=== PATIENT | male | born 1970 | race African-American/Black ===

== ENCOUNTER 2016-03-12 14:22 | Emergency (ER) | payer OTHER ==
[~2016-03-12] VITALS: Ht 177.8 cm; Wt 86.4 kg
[2016-03-12] MEDS ORDERED: SKELAXIN800 MG PO (19:08)
[2016-03-12] MEDS ORDERED: NAPROXEN500 MG PO (19:08)
[2016-03-12 19:26] VITALS: BP 118/89
== END 2016-03-12 19:27 | disposition home or self-care (01) ==
LOC: EME 14:22
DX: S39.012A Strain of muscle, fascia and tendon of lower back, initial encounter (principal); V73.6XXA Passenger on bus injured in collision with car, pick-up truck or van in traffic accident, initial encounter
CPT/HCPCS: 99281; 99283

== ENCOUNTER 2016-03-16 15:00 | Emergency (ER) | payer SELFPAY ==
[~2016-03-16] VITALS: Ht 177.8 cm; Wt 88.1 kg
[~2016-03-16 15:00] MED LIST: NAPROXEN500 MG PO; SKELAXIN800 MG PO
[2016-03-16] MEDS ORDERED: FLEXERIL10 MG PO (16:33)
[2016-03-16] MEDS ORDERED: MOTRIN600 MG PO (16:33)
[2016-03-16 16:51] VITALS: BP 119/93
== END 2016-03-16 16:52 | disposition home or self-care (01) ==
LOC: EME 15:00 → EXP 15:00
DX: S39.012A Strain of muscle, fascia and tendon of lower back, initial encounter (principal); M54.41 Lumbago with sciatica, right side; V79.50XA Passenger on bus injured in collision with unspecified motor vehicles in traffic accident, initial encounter
CPT/HCPCS: 99281; 99283